=== PATIENT | female | born 2000 | race Caucasian/White ===

== ENCOUNTER 2023-11-19 10:37 | Observation (INO) | payer OTHER, SELFPAY ==
[2023-11-19] VITALS (9 sets, daily range): BP systolic 101–131; BP diastolic 62–82; PULSE 72–97; RESP 10–20; TEMP 36.2–37.2; O2SAT 98–100; BMI 29.2
--- NOTE | 2023-11-19 11:05 | DI.RAD.S_ITS ---
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 COMPARISON: None. FINDINGS: Bones: Osseous defect is seen at the radial aspect of the 3rd distal phalangeal tuft. Osseous structures otherwise intact. No suspicious bony lesions. Soft tissues: Skin irregularity is seen at the radial tip of the middle finger adjacent to the osseous defect compatible with reported laceration. IMPRESSION: Osseous defect at the radial aspect of the 3rd distal phalangeal tuft with overlying skin defect. Approved by: Evaristo Taylor M.D. on 11/19/2023 at 12:06
[2023-11-19] MEDS: ACETAMINOPHEN 325 MG TABLET 650 MG PO ×2 (11:08→15:15)
[2023-11-19] MEDS: OXYCODONE IR 5 MG TABLET PO (17:09)
--- NOTE | 2023-11-19 17:24 | ED.WOUNDLAC ---
HPI - Wound/Laceration General Chief Complaint: Wound/Laceration Stated Complaint: cut tip of finger off at work Time Seen by Provider: 11/19/23 17:23 Source: patient Mode of arrival: Ambulatory History of Present Illness HPI narrative: 22-year-old female approximately 6 weeks and 4 days with laceration to the distal 3rd finger. 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 She states she did bring the tip. She states it bled quite a bit. She is quite uncomfortable. She denies any other injuries. States tetanus was last updated 10 years ago. Related Data Home Medications Medication Instructions Recorded Confirmed No Known Home Medications 07/06/18 07/06/18 Allergies Allergy/AdvReac Type Severity Reaction Status Date / Time No Known Drug Allergies Allergy Verified 11/19/23 11:03 Review of Systems Review of Systems ROS Unobtainable: All systems reviewed & are unremarkable except as noted in HPI and below Patient History Social History Smoking Status: Former smoker Smoking Status: Former smoker alcohol intake frequency: holidays/special occasions only Substance Use Type: does not use Exam Narrative Exam Narrative: GENERAL: Alert and oriented x three, female in moderate distress. HEENT: Head normocephalic, atraumatic, EOMI, pupils reactive, face symmetric, moist mucous membranes NECK: Supple, full range of motion CARDIOVASCULAR: Regular rate and rhythm without murmurs, rubs or gallops. RESPIRATORY: Breath sounds equal bilaterally, no wheezes rales or rhonchi. ABDOMEN: Soft, nontender. Normoactive bowel sounds all 4 quadrants. No guarding or rebound, rigidity, no mass EXTREMITIES: Normal range of motion, no clubbing or edema. Neurovascularly intact. Patient has oblique avulsion of the distal end of her 3rd finger past the 1st DI P, patient has a almost complete loss of the nail. Decreased sensation. Does bleed when unwrapped. NEUROLOGICAL: Cranial nerves II through XII grossly intact. Moving all extremities SKIN: Warm, dry, no petechiae, no rashes or lesions. Initial Vital Signs Initial Vital Signs: Vital Signs Temperature 98.9 F 11/19/23 10:58 Pulse Rate 93 H 11/19/23 10:58 Respiratory Rate 15 11/19/23 10:58 Blood Pressure 129/66 11/19/23 10:58 Pulse Oximetry 100 11/19/23 10:58 Oxygen Delivery Method Room Air 11/19/23 10:58 Procedures Nerve Block Nerve Block 1: Local Anesthetic: lidocaine 2% and bupivacaine 0.25% Amount of anesthesia used (mL): 5 Side: right (3rd finger.) Nerve Blocks: digital Procedure Successful: Yes Patient Tolerated Procedure: Well and No complications Complications: none Course Orders Ordered: ED Orders 11/19/23 11:05 XR finger RT min 2V Stat Sodium Chloride (Normal Saline 0.9%) 1,000 mls @ 150 mls/hr IV CONT CANDI Last Admin: 11/19/23 18:29 Dose: 150 mls/hr Documented By: FRAN Discontinued Medications Acetaminophen (Acetaminophen 325 Mg Tablet) 650 mg PO NOW ONE Stop: 11/19/23 11:06 Last Admin: 11/19/23 11:08 Dose: 650 mg Documented By: FELI Acetaminophen (Acetaminophen 325 Mg Tablet) 650 mg PO NOW ONE Stop: 11/19/23 15:06 Last Admin: 11/19/23 15:15 Dose: 650 mg Documented By: SHU Bacitracin (Bacitracin Oint 0.9 Gm Pckt) 1 applic TOP NOW ONE Stop: 11/19/23 18:07 Last Admin: 11/19/23 18:44 Dose: Not Given Documented By: RB Bupivacaine HCl (Bupivacaine 0.25% (Pf) Vial) 30 ml INJ INTRA-OP ONE Stop: 11/19/23 18:01 Last Admin: 11/19/23 17:56 Dose: 30 ml Documented By: RB Diphtheria/Tetanus/Acell Pertussis (Tet,Diph,Pertuss(Acell),Vac/Pf 0.5 Ml Syringe) 0.5 ml IM .ONCE ONE Stop: 11/19/23 17:35 Last Admin: 11/19/23 17:45 Dose: 0.5 ml Documented By: RB Cefazolin Sodium/Dextrose (Ancef) 100 mls @ 200 mls/hr IV NOW ONE Stop: 11/19/23 18:52 Last Admin: 11/19/23 19:00 Dose: 200 mls/hr Documented By: RB Morphine Sulfate (Morphine 4 Mg/Ml Inj) 4 mg IV NOW ONE Stop: 11/19/23 18:24 Last Admin: 11/19/23 18:29 Dose: 4 mg Documented By: FRAN Morphine Sulfate (Morphine 4 Mg/Ml Inj) 4 mg IV NOW ONE Stop: 11/19/23 18:25 Last Admin: 11/19/23 18:43 Dose: Not Given Documented By: RB Ondansetron HCl (Ondansetron 4 Mg Odt) 4 mg SL NOW ONE Stop: 11/19/23 17:42 Last Admin: 11/19/23 17:45 Dose: 4 mg Documented By: RB Oxycodone HCl (Oxycodone Ir 5 Mg Tablet) 5 mg PO NOW ONE Stop: 11/19/23 17:00 Last Admin: 11/19/23 17:09 Dose: 5 mg Documented By: RB Vital Signs Vital signs: Vital Signs - 8 hr 11/19/23 13:38 Temperature 98.3 F Pulse Rate 75 Blood Pressure 125/77 Pulse Oximetry 100 Oxygen Delivery Method Room Air MDM - Wound/Laceration Imaging Data Extremity x-ray #1: Radiologist's Impression: [place] [address] XRay Report Signed Patient: Amparo Aburto MR#: [id number] : 2000 Acct:[id number] Age/Sex: 23 / F Date of Service: 11/19/23 Loc: ED Accession Number: [id number] Procedure: XR finger RT min 2V Ordering Provider: Yahaira Birmingham D.O. 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 COMPARISON: None. FINDINGS: Bones: Osseous defect is seen at the radial aspect of the 3rd distal phalangeal tuft. Osseous structures otherwise intact. No suspicious bony lesions. Soft tissues: Skin irregularity is seen at the radial tip of the middle finger adjacent to the osseous defect compatible with reported laceration. IMPRESSION: Osseous defect at the radial aspect of the 3rd distal phalangeal tuft with overlying skin defect. Approved by: Evaristo Taylor M.D. on 11/19/2023 at 12:06 [facility] Narrative Medical decision making narrative: 23-year-old female proximally 6 weeks with laceration to the distal end of her 3rd finger, she has a large avulsion injury does take off a piece of the distal bone on x-ray. Patient had digital block. Had some improvement in pain. Spoke with Dr. Gama with Orthopedic surgery, plan for OR this evening. Patient is NPO. Last solids was this morning. Had a clear soda in the last few hours. Patient had line place, IV antibiotics, fluids patient additional pain medication. L&I paperwork was filled out Discharge Plan Departure Patient Disposition: Admitted to Surgery Clinical Impression: Avulsion of finger tip Admit Date/Time: 11/19/23 18:24 Admit Provider: Rizwana Gama
[2023-11-19] MEDS: TET,DIPH,PERTUSS(ACELL),VAC/PF 0.5 ML SYRINGE IM (17:45)
[2023-11-19] MEDS: ONDANSETRON 4 MG ODT SL (17:45)
[2023-11-19] MEDS: BUPIVACAINE 0.25% (PF) VIAL 30 ML INJ (17:56)
[2023-11-19] MEDS: MORPHINE 4 MG/ML INJ IV (18:29)
[2023-11-19] MEDS: SODIUM CHLORIDE 0.9% 1,000 ML 150 ML IV (18:29)
[2023-11-19] MEDS: CEFAZOLIN 2 GM/100 ML PREMIX 100 ML IV ×2 (19:00→20:16)
--- NOTE | 2023-11-19 19:41 | P.HP_ITS ---
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 She sustained a significant laceration and lost the tip of her right middle finger and sustained a laceration to her index finger. She came to [facility] for evaluation evaluation to the emergency room. She is left- hand dominant. She notes significant pain in the finger. She is also about 6 weeks . She has 1 other child who is 7. She did not have problems with the . [facility] Social History Smoking Status: Former smoker Meds Home Medications and Allergies Home Medications Medication Instructions Recorded Confirmed Type No Known Home Medications 07/06/18 07/06/18 History Allergies Allergy/AdvReac Type Severity Reaction Status Date / Time No Known Drug Allergies Allergy Verified 11/19/23 11:03 Review of Systems Review of Systems Narrative: No other problems. Ongoing significant finger pain. Exam Vital Signs (past 8 hours): - 11/19/23 13:38 11/19/23 18:56 Temperature 98.3 F Pulse Rate 75 97 H Respiratory Rate 20 Blood Pressure 125/77 131/62 Pulse Oximetry 100 99 Oxygen Delivery Method Room Air Room Air Oxygen Delivery Method Room Air Narrative Exam Narrative: HEENT is benign, lung clear ?cor regular rate and rhythm abdomen soft and benign examination of her right upper extremity shows a laceration on the dorsum of the right index finger there is a partial amputation of her middle finger with a di stinct 2 distal tip is missing, there is no other injuries to the right upper extremity Objective ECG Impression: X-rays show a distal tip amputation of the middle finger with missing bone and subcutaneous tissue Assessment & Plan Assessment and plan (1) Avulsion of finger tip: Qualifiers: Encounter type: initial encounter Qualified Code(s): S61.209A - Unspecified open wound of unspecified finger without damage to nail, initial encounter Status: Acute Plan I have recommended irrigation debridement and completion amputation and closure. The procedure options risks benefits and complications were discussed in detail. She is about 6 weeks . We discussed her situation with anesthesia. I told her that I will attempt to preserve what I can of the distal tip of her finger but I would like to get adequate closure. She understands and agrees. She has a minor laceration of her index finger which I told her that I will irrigate and will consider closing with Steri-Strips or sutures as needed. The procedure options risks benefits and complications was discussed.
[2023-11-19] MEDS: BUPIVACAINE 0.5% (PF) 30 ML VIAL INJ (20:00)
[2023-11-19] MEDS: cephALEXin 250 MG CAP PREPACK 1 BOTTLE MISC (21:20)
[2023-11-19] MEDS: HYDROCODONE/ACET 5/325 PREPACK 1 BOTTLE MISC (21:21)
--- NOTE | 2023-11-19 21:23 | PM.OP.1 ---
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 Surgeon: Rizwana Gama Click Yes if Unassisted: Yes Anesthesia Type: MAC +/- and Local Operative Notes Findings: Distal tip amputation middle finger completion and closure without difficulty, laceration extensor surface index finger Closure Type: primary Specimen(s): none sent Estimated Blood Loss (mL): 10 Blood products transfused: none Tourniquet time (min): 16 Procedure in detail: Patient brought to the operating room and a time-out was performed. She was given IV antibiotics. She underwent the induction of sedation anesthesia. A dense digital block was performed of the right middle finger. She was prepped and draped in a standard sterile fashion. The wound was meticulously irrigated with dilute normal saline and was carefully scrubbed. Tourniquet was inflated to 250 mmHg. Combination of a Gary and a 15 blade scalpel was used to free the nail from the dorsum of the nail bed of the middle finger. There was a laceration and partial amputation of the finger which went across the nail base removing the radial side of the middle finger. The soft tissue was meticulously freed from the distal tip of the finger as there was inadequate bony coverage. It was gently mobilized and the distal tip was carefully cut with a bone cutter to shorten the finger and do a completion amputation. The flap was then carefully mobilized and repaired with interrupted chromic. There was good coverage of the distal tip. The distal tip did appear viable. Attention was then directed to the index finger there was about a 1.3 cm laceration on the dorsum of the index finger. It was meticulously cleaned and then closed with interrupted sutures. Both wounds were meticulously dressed sterilely. She tolerated the procedure well. She was transferred to recovery room in satisfactory condition. Complications none. Complications: none Post-operative Condition: stable Disposition: Acute Care Plan for aftercare: Take oral antibiotics as needed for 1 week postoperatively. Return to clinic in 10-14 days for wound check and dressing change. No lifting right upper extremity.
== END 2023-11-19 21:30 | disposition home or self-care (01) ==
LOC: ED 17:23 → AC 18:25
PROVIDERS: Admitting Provider Orthopaedic Surgery; Emergency Provider Emergency Medicine; Referring Provider Emergency Medicine; Visit Provider Orthopaedic Surgery
PROC: (CPT 26951; principal; 2023-11-19 17:00)
DX: S68.622A Partial traumatic transphalangeal amputation of right middle finger, initial encounter (principal); S61.210A Laceration without foreign body of right index finger without damage to nail, initial encounter; W27.0XXA Contact with workbench tool, initial encounter; Y92.63 Factory as the place of occurrence of the external cause; Y99.0 Civilian activity done for income or pay; Z23 Encounter for immunization
CPT/HCPCS: 26951; 12001; 36415; 64450; 73140; 90471; 96365; 96375; 99284; G0378; 90715; J0690; J1100; J2270; J2704; J3010

== ENCOUNTER → 2024-01-13 09:32 | Outpatient (CLI) | payer OTHER, SELFPAY | PROVIDERS: Referring Provider Physician Assistant; Visit Provider Surgery | DX: S61.304A Unspecified open wound of right ring finger with damage to nail, initial encounter (principal); L98.8 Other specified disorders of the skin and subcutaneous tissue; T81.31XA Disruption of external operation (surgical) wound, not elsewhere classified, initial encounter; Z87.891 Personal history of nicotine dependence | CPT/HCPCS: 97597; 99203; 99213 ==

== ENCOUNTER → 2024-01-22 13:59 | Outpatient (CLI) | payer OTHER, SELFPAY | LOC: WC 14:00 | PROVIDERS: Referring Provider Physician Assistant; Visit Provider Physician Assistant | DX: S61.304D Unspecified open wound of right ring finger with damage to nail, subsequent encounter (principal); T81.31XD Disruption of external operation (surgical) wound, not elsewhere classified, subsequent encounter | CPT/HCPCS: 99212 ==

== ENCOUNTER → 2024-02-25 11:44 | Outpatient (CLI) | payer OTHER, MEDICAID, SELFPAY ==
--- NOTE | 2024-02-25 | DI.US.S_ITS ---
PROCEDURE: US OB >= 14 WEEKS FETUS INDICATIONS: anatomy scan OUTSIDE/PRIOR DATING DATA: Last menstrual period (LMP): 09/27/2023 LMP-based estimated date of delivery (RONI): 07/03/2024 The calculations are made using the clinical RONI of 07/03/2024 TECHNIQUE: Real-time scanning was performed of the fetus, with image documentation and biometric measurements. Endovaginal scanning: Not performed COMPARISON: None. FINDINGS: General: A single living intrauterine gestation is present. Presentation: Variable. Placenta: Placental position is posterior, without previa. Amniotic fluid index: 15.4 cm, normal range is 5-24 cm. Single deepest vertical pocket is 4.5 cm. heart rate: 131 beats per minute. Maternal cervical canal: 3.7 cm long. Normal lower limit is 2.5 cm. biometrics: Biparietal diameter: 5.1 cm, 21 weeks 2 days Head circumference: 19.5 cm, 21 weeks 5 days Abdominal circumference: 19.1 cm, 23 weeks 6 days Femur length: 3.6 cm, 21 weeks 3 days Clinically estimated gestational age: 21 weeks 4 days Composite gestational age from present scan: 22 weeks 1 day Estimated weight and percentile: 520 g, 92nd percentile Anatomic survey: Neuro: Ventricles are non-dilated at less than 10 mm. Cisterna magna is normal at 3-11 mm. Cerebellum is normal in size and morphology. Nuchal skin fold: Normal at less than 6 mm between 14-21 weeks gestational age. Face: Nose and lips, facial profile are normal. Spine: No evidence for spina bifida. Heart: 4-chambered heart is present, with normal ventricular outflow tracts. Diaphragm: Diaphragm is intact. Stomach: Left-sided stomach is present. Kidneys: No hydronephrosis. Normal is less than 5 mm in 2nd trimester, less than 7 mm in 3rd trimester. Cord: 3-vessel cord has orthotopic insertion. Bladder: Normal in size. Extremities: All 4 extremities identified. IMPRESSION: 1. Single live intrauterine at 21 weeks 4 days clinical gestational age. 2. Estimated weight is at the 92nd percentile for clinical gestational age, which may be secondary to dating discrepancy versus developing macrosomia. Recommend attention on follow-up exams. 3. anatomic survey is otherwise within normal limits. Approved by: Evaristo Taylor M.D. on 02/25/2024 at 20:50
== END ==
LOC: US 11:45
PROVIDERS: Referring Provider Family Medicine; Visit Provider Family Medicine
DX: Z34.82 Encounter for supervision of other normal pregnancy, second trimester (principal); Z3A.21 21 weeks gestation of pregnancy
CPT/HCPCS: 76811

== ENCOUNTER → 2024-06-16 12:32 | Outpatient (CLI) | payer OTHER, SELFPAY ==
--- NOTE | 2024-06-16 12:34 | DI.US.S_ITS ---
PROCEDURE: US OB LIMITED INDICATIONS: GROWTH OUTSIDE/PRIOR DATING DATA: Last menstrual period (LMP): 09/27/2023. LMP-based estimated date of delivery (RONI): 07/03/2024. TECHNIQUE: Real-time scanning was performed of the fetus, with image documentation and biometric measurements. Endovaginal scanning: Not performed COMPARISON: [facility], OB >= 14 WEEKS FETUS, 02/25/2024, 12:32. FINDINGS: General: A single living intrauterine gestation is present. Presentation: Vertex. Placenta: Placental position is posterior , without previa. Heterogeneous, maturing placenta. Amniotic fluid index: 10.5 cm, normal range is 5-24 cm. Single deepest vertical pocket is 3.4 cm. heart rate: 124 beats per minute. Maternal cervical canal: 3.4 cm long. Normal lower limit is 2.5 cm. biometrics: Biparietal diameter: 9.3 centimeters, 37 weeks 5 days Head circumference: 33.5 centimeters, 38 weeks 2 days Abdominal circumference: 34.7 centimeters, 38 weeks 4 days Femur length: 7.3 centimeters, 37 weeks 2 days Clinically estimated gestational age: 37 weeks 4 days Composite gestational age from present scan: 38 weeks 0 days Estimated weight and percentile: 3409 grams, 74th percentile Other: Not applicable. IMPRESSION: 1. Single live intrauterine consistent with 30 weeks and 0 days. 2. Estimated weight is in the 74th percentile. 3. Heterogeneous, maturing placenta is noted. We strive to produce accurate, complete, and clear reports of imaging services. To assist us in improving patient care, this report was composed using standard report templates and voice recognition software. Therefore, it may contain abnormal punctuation, insertions and/or omissions. Occasional wrong-word or sound-alike substitutions may occur. Though we review the report and make efforts to correct it, we do recommend that the report be read carefully in proper context to recognize any text inaccuracies. Dictated by: Fernie Macdonald M.D. on 06/17/2024 at 9:40 Approved by: Fernie Macdonald M.D. on 06/17/2024 at 9:42
== END ==
LOC: US 12:33
PROVIDERS: PCP Family Medicine; Referring Provider Family Medicine; Visit Provider Family Medicine
DX: O26.843 Uterine size-date discrepancy, third trimester (principal); Z3A.38 38 weeks gestation of pregnancy
CPT/HCPCS: 76815